=== PATIENT | male | born 1940 | race Caucasian/White ===

== ENCOUNTER → 2016-08-05 | Outpatient (CLI) | payer MEDICARE ==
--- NOTE | ~2016-08-05 | US37 ---
[facility] A Service of [facility] RADIOLOGY TEXT RESULTS PATIENT: AYLA EDWARDS LOCATION: CNIV : 41 UNIT #: [id number] AGE: [address]: Alek Kelley MD SEX: M ORDER DR: [id number] [facility] [address]. [place], [place] [address] [id number] O MR#: [id number] Acc #: [id number] NAME: AYLA EDWARDS : 1940 SEX: M STUDY DATE/TIME: 08/05/2016 12:25 UNIT: CNIV ROOM: STUDY DESCRIPTION: US Carotid W/Doppler Bilateral Attending Physician: Alek Kelley M.D. Referring Physician: Alek Kelley M.D. Ordering Physician: Alek Kelley M.D. Primary Care Physician: Josiah Tian Jr., M.D. MEDICAL IMAGING REPORT This report is preliminary unless electronic signature is present EXAM Carotid Doppler. DATE OF EXAM 08/05/2016 INDICATIONS Blurry vision. This been present for 2 weeks. TECHNIQUE Bilateral carotid ultrasound examination was performed using sweeney-scale spectral Doppler, and color-flow Doppler imaging. Carotid flow was assessed using standards based on NASCET methodology. FINDINGS No significant atheromatous plaque is identified from the carotid arteries of the neck bilaterally. Doppler evaluation shows normal flow velocities and normal Doppler waveforms within the carotid vertebral arteries bilaterally. Peak systolic internal carotid artery flow velocities measure up to 105 cm/sec on the right and 58 cm/sec on the left. There is no evidence of significant carotid stenosis in the neck. IMPRESSION Normal carotid Doppler ultrasound examination. Dictated by... Maris Lugo M.D. THIS IS AN ELECTRONICALLY VERIFIED REPORT Maris Lugo M.D. at 08/06/2016 4:50 PM AFF/jt [facility] A Service of [facility] RADIOLOGY TEXT RESULTS PATIENT: AYLA EDWARDS LOCATION: CNIV : 41 UNIT #: [id number] AGE: [address]: Alek Kelley MD SEX: M ORDER DR: TD: 08/05/2016 16:46 JOB #: [id number] MEDICAL IMAGING REPORT Page 1 of 1 COPY
== END | disposition home or self-care (01) ==
LOC: CNIV 11:49
DX: H53.10 Unspecified subjective visual disturbances (principal)
CPT/HCPCS: 93880